=== PATIENT | female | born 1985 | race Hispanic/Latino ===

== ENCOUNTER 2019-04-10 10:04 | Emergency (ER) | payer BC, SELFPAY ==
[2019-04-10] MEDS ORDERED: Ondansetron ODT 4 MG TAB ONE (10:30)
[2019-04-10 10:56] LABS: #Lymphocytes 2.1 thou/uL (1.20-3.40); #Monocytes 0.5 thou/uL (0.11-0.59); #Neutrophils 2.6 thou/uL (1.40-6.50); %Basophils 0.3 % (0.0-1.0); %Eosinophils 0.3 % (0.0-10.0); %Lymphocytes 40.5 % (21.0-51.0); %Neutrophils 49.9 % (42.0-75.0); Hemoglobin 13.9 g/dL (12.0-16.0); Mean Corpuscular HGB CONC 35.4 g/dL (32.0-36.0); Mean Corpuscular Hemoglobin 29.9 pg (27.0-31.0); Mean Corpuscular Volume 84.5 fL (78.0-98.0); Mean Platelet Volume 8.5 fL (7.4-10.4); Platelet Count 174 thou/uL (130-400); RBC Distribution Width 11.6 % (11.5-14.5); Red Blood Cell (RBC) Count 4.64 mill/uL (4.20-5.40); White Blood Cell (WBC) Count 5.1 thou/uL (4.8-10.8)
[2019-04-10] MEDS ORDERED: Morphine 4 MG/ML VIAL ONE (11:00)
[2019-04-10 11:10] LABS: BHCG - Serum Negative (NEGATIVE); Pregs Control Background? CLEAR/WHITE (CLR/WHITE); Pregs Control Bar Appear? YES (CONTROL BAR)
[2019-04-10 11:21] LABS: ALT (SGPT) 41 U/L (8-55); AST (SGOT) 31 U/L (5-34); Albumin 4.2 g/dL (3.5-5.0); Alkaline Phosphatase 61 U/L (40-110); Anion Gap 13 mmol/L (10-20); BUN (Urea Nitrogen) 15 mg/dL (7.0-18.7); Bilirubin, Total 0.8 mg/dL (0.2-1.2); Calc. Creatinine Clearance 0 mL/min (70-130); Calcium 9.3 mg/dL (7.8-10.44); Carbon Dioxide 21 mmol/L (22-29); Chloride 107 mmol/L (98-107); Estimated GFR-MDRD 85; Globulin 3.2 g/dL (2.4-3.5); Glucose 80 mg/dL (70-105); Lipase 20 U/L (8-78); Protein, Total 7.4 g/dL (6.0-8.3); Sodium 137 mmol/L (136-145)
--- NOTE | 2019-04-10 11:42 | ULT ---
RIGHT UPPER QUADRANT ULTRASOUND: Date: 04/10/19 HISTORY: Gastroparesis. Severe right upper quadrant pain, onset this morning. COMPARISON: None. TECHNIQUE: Utilizing a multihertz transducer, sagittal and transverse imaging of the right upper quadrant is per formed. FINDINGS: Pancreas is obscured by bowel gas. Suboptimal evaluation inferior vena cava. Heterogeneous echotexture of the liver which may be due to hepatic steatosis or hepatocellular diseas e. Limited evaluation for hepatic masses and intrahepatic biliary dilatation. Right hepatic lobe anuj ures 16.6 cm. Grossly, main portal vein is patent. Suboptimal evaluation of the common bile duct. No definite sonographic evidence of cholelithiasis, gallbladder wall thickening, or pericholecystic f luid. However, home improvement installer reports a positive Pierce's sign. Suboptimal evaluation of the right kidney. Grossly, no hydronephrosis. IMPRESSION: 1. Suboptimal evaluation due to bowel gas. No definite sonographic evidence of cholelithiasis. Howev er, home improvement installer does report a positive Pierce's sign. Consider HIDA scan if clinically warranted. 2. Heterogeneous echotexture of the liver which may be due to technical limitations, hepatic steatos is, or hepatocellular disease. Further evaluation with CT if clinically warranted. POS: [facility]
--- NOTE | 2019-04-10 13:35 | CT ---
CT ABDOMEN WITH CONTRAST CT PELVIS WITH CONTRAST: DATE: 04/10/2019 HISTORY: 33-year-old female with right upper quadrant abdominal pain and possible abnormal findings on ultraso und. TECHNIQUE: IV injection of iodinated contrast media: Administered Oral contrast media:Not administered FINDINGS: Liver: No focal solid mass. Spleen: No splenomegaly.. Pancreas: No mass or surrounding fat stranding.. Adrenals: No mass.. Kidneys: No enhancement abnormalities. Mild dilation of bilateral collecting systems Ureters: No dilation. Bladder: Distended. Normal wall thickness. Abdominal aorta: No aneurysm. Small bowel: No dilation. Colon: No adjacent fat stranding. Appendix: No dilation or adjacent fat stranding.. Free air: None. Free fluid: None. Gallbladder: No mural thickening or mural enhancement. No pericholecystic fluid or edema. Lung bases: Clear. IMPRESSION: 1). Mild bilateral hydronephrosis, probably due to distended urinary bladder. 2) otherwise normal
[2019-04-10 15:45] LABS: Bilirubin Negative (Negative); Blood, Urine Negative (Negative); Clarity Clear (Clear); Glucose, Urine (Dipstick) Normal (Negative); Leukocyte Negative Leu/uL (Negative); Nitrite Negative (Negative); Protein, Urine (Dipstick) Negative (Neg-Trace); Urobilinogen Normal mg/dL (Less than 2)
[2019-04-10] MEDS ORDERED: Ketorolac Tromethamine 30 MG/ML VIAL ONE (15:59)
== END 2019-04-10 16:11 | disposition home or self-care (01) ==
LOC: ERS 10:04
DX: R10.11 Right upper quadrant pain (principal); E03.9 Hypothyroidism, unspecified; F41.9 Anxiety disorder, unspecified; Z79.899 Other long term (current) drug therapy
CPT/HCPCS: 74177; 76705; 80053; 81003; 83690; 84703; 85025; 96361; 96374; 96375; J1885; J2270; Q0162

== ENCOUNTER 2020-08-06 00:32 | Emergency (ER) | payer BC ==
[2020-08-06 00:59] LABS: #Lymphocytes 2.2 thou/uL (1.20-3.40); #Monocytes 0.5 thou/uL (0.11-0.59); #Neutrophils 3.2 thou/uL (1.40-6.50); %Basophils 0.8 % (0.0-1.0); %Eosinophils 0.3 % (0.0-10.0); %Lymphocytes 36.9 % (21.0-51.0); Hemoglobin 14.1 g/dL (12.0-16.0); Mean Corpuscular Hemoglobin 30.2 pg (27.0-31.0); Mean Corpuscular Volume 88.7 fL (78.0-98.0); Mean Platelet Volume 7.5 fL (7.4-10.4); Platelet Count 215 thou/uL (130-400); RBC Distribution Width 11.6 % (11.5-14.5); Red Blood Cell (RBC) Count 4.68 mill/uL (4.20-5.40)
[2020-08-06 01:20] LABS: ALT (SGPT) 35 U/L (8-55); AST (SGOT) 24 U/L (5-34); Albumin 3.9 g/dL (3.5-5.0); Alkaline Phosphatase 65 U/L (40-110); Anion Gap 12 mmol/L (10-20); BUN (Urea Nitrogen) 8 mg/dL (7.0-18.7); Bilirubin, Total 0.3 mg/dL (0.2-1.2); Calc. Creatinine Clearance 0 mL/min (70-130); Calcium 8.8 mg/dL (7.8-10.44); Carbon Dioxide 24 mmol/L (22-29); Chloride 108 mmol/L (98-107); Globulin 3.5 g/dL (2.4-3.5); Glucose 95 mg/dL (70-105); Lipase 59 U/L (8-78); Potassium 3.8 mmol/L (3.5-5.1); Protein, Total 7.4 g/dL (6.0-8.3); Sodium 140 mmol/L (136-145)
[2020-08-06] MEDS ORDERED: Morphine 4 MG/ML VIAL ONE (01:38)
[2020-08-06] MEDS ORDERED: Ondansetron PF 4 MG/2 ML Vial ONE (01:38)
[2020-08-06] MEDS ORDERED: Ketorolac Tromethamine 30 MG/ML VIAL ONE (02:59)
[2020-08-06 03:22] LABS: Bilirubin Negative (Negative); Blood, Urine Negative (Negative); Clarity Clear (Clear); Glucose, Urine (Dipstick) Normal (Negative); Ketone, Urine Negative (Negative); Leukocyte Negative Leu/uL (Negative); Nitrite Negative (Negative); Protein, Urine (Dipstick) Negative (Neg-Trace); Specific Gravity, Urine 1.015 (1.002-1.036); Urobilinogen Normal mg/dL (Less than 2)
[2020-08-06 03:23] LABS: Pregnancy Test - Urine (BHCG) Negative (Negative); Pregu Control Background? CLEAR/WHITE (CLR/WHITE); Pregu Control Bar Appear? YES (CONTROL BAR); Specific Gravity 1.015 (1.002-1.036)
--- NOTE | 2020-08-06 09:21 | CT ---
PRELIMINARY REPORT/[facility]/EMERGENCY AFTER HOURS PROCEDURE: EXAM: CT Abdomen and Pelvis with Intravenous Contrast CLINICAL HISTORY: 34-year-old female patient presents ER with complaint of right lower quadrant abdom inal pain, nausea, vomiting began earlier today. The patient reports a similar episode in the past wh en she was diagnosed with gallstones but did not ever have her gallbladder removed. Surgical history of section, tubal ligation. TECHNIQUE: Axial computed tomography images of the abdomen and pelvis with intravenous contrast. CONTRAST: With; ISOVUE 370,100mL COMPARISON: US - US GALLBLADDER RUQ - 08/06/2020 01:40 AM VAMP STITCHER FINDINGS: LUNG BASES: No basilar airspace consolidation or pleural effusion. LIVER: Unremarkable. GALLBLADDER AND BILE DUCTS: Unremarkable. No calcified stone. No ductal dilation. PANCREAS: Unremarkable. SPLEEN: Unremarkable. ADRENAL GLANDS: Unremarkable. KIDNEYS, URETERS, AND BLADDER: There are two 1 mm calculi lower pole left kidney, best appreciated on coronal reformats. STOMACH AND BOWEL: No obstruction. No wall thickening. No CT evidence of colitis or acute diverticuli tis. APPENDIX: Appendix is normal. PERITONEUM: No free fluid. No free air. LYMPH NODES: No lymphadenopathy. REPRODUCTIVE: The uterus and right adnexa are within normal limits. There is collapse left ovarian fo llicle measuring 1.3 cm. VASCULATURE: No aortic aneurysm. BONES: No fracture or suspicious osseous abnormality. ABDOMINAL WALL AND SOFT TISSUES: Unremarkable. IMPRESSION: No acute abnormality. Left nephrolithiasis. ELECTRONICALLY SIGNED BY: Tory Reid MD Aug 06, 2020 4:03:53 AM VAMP STITCHER FINAL REPORT ABDOMEN CT WITH CONTRAST PELVIC CT WITH CONTRAST: COMPARISON: 04/10/2019. HISTORY: Abdominal pain. Nausea. FINDINGS: ABDOMEN CT: Clear lung bases. Normal heart size. Normal caliber aorta. Portal vein is patent. Unremarkable gallbladder. Appropriate enhancement of the solid organs. No gastrohepatic retrocrural, or periportal lymphadenopathy. Symmetric enhancement of the kidneys. Bilaterally, no obstructive uropathy. Limited evaluation of the alimentary canal by the lack of oral contrast. No evidence of a bowel obst ruction. Incompetent ileocecal valve with reflux of contrast into the distal ileum. Normal-caliber appendix. Unremarkable colon. PELVIC CT: There is a dominant follicle in the left ovary, measuring 2.3 x 1.3 cm. No pelvic mass, lymphadenopa thy, free air, or free fluid. No lytic or blastic lesions in the osseous structures. IMPRESSION: 1. This report is in agreement with the preliminary report by [facility]. 2. No acute abnormality in the abdomen or pelvis. POS: [facility]
--- NOTE | 2020-08-06 09:23 | ULT ---
PRELIMINARY REPORT/[facility]/EMERGENCY AFTER HOURS PROCEDURE: EXAM: US Abdomen Limited, Right Upper Quadrant. CLINICAL HISTORY: RUQ pain x 2 days, pain worse tonight, N/V TECHNIQUE: Real-time ultrasound of the right upper quadrant with image documentation. COMPARISON: None provided. FINDINGS: LIVER: There is fatty infiltration of the liver GALLBLADDER: The gallbladder is contracted. No gallstone. No wall thickening. No pericholecystic flu id. The audit tech reports a negative sonographic Pierce sign. COMMON BILE DUCT: No dilation. PANCREAS: The pancreas is obscured by overlying bowel gas. RIGHT KIDNEY: Unremarkable. No hydronephrosis. IMPRESSION: Fatty infiltration of the liver. Contracted gallbladder without evidence of stones. ELECTRONICALLY SIGNED BY: Jagjit Sotomayor MD Aug 06, 2020 2:28:17 AM HIGH SCHOOL COUNSELOR FINAL REPORT GALLBLADDER ULTRASOUND: HISTORY: Pain. COMPARISON: 04/10/2019. FINDINGS: Pancreas is obscured by bowel gas. Heterogeneous echotexture of the liver may be due to hepatic steatosis or hepatocellular disease. Li mited evaluation for hepatic masses and intrahepatic biliary dilatation. Common bile duct diameter is 0.3 cm. Portal vein is patent. No evidence of hydronephrosis. Normal cortical echotexture of the right kidney, measuring 10.7 cm in maximum dimension. Gallbladder is contracted, limiting evaluation. Negative Pierce's sign is reported. IMPRESSION: 1. This report is in agreement with the preliminary report by [facility]. 2. Contracted gallbladder. 3. Heterogeneous echotexture of the liver which may be due to hepatic steatosis or hepatocellular di sease. POS: [facility]
[2020-08-06] MEDS ORDERED: Iopamidol 370 76% 100 ML VIAL ONE (14:14)
== END 2020-08-06 05:00 | disposition home or self-care (01) ==
LOC: ERS 00:32
DX: R10.31 Right lower quadrant pain (principal); R10.811 Right upper quadrant abdominal tenderness; R11.2 Nausea with vomiting, unspecified; E03.9 Hypothyroidism, unspecified; Z79.899 Other long term (current) drug therapy
CPT/HCPCS: 36415; 74177; 76705; 80053; 81003; 81025; 83690; 85025; 96374; 96375; J1885; J2270; J2405; Q9967

== ENCOUNTER 2023-02-01 02:41 | Emergency (ER) | payer OTHER, BC ==
[2023-02-01 03:03] LABS: #Monocytes 0.5 thou/uL (0.11-0.59); #Neutrophils 4.9 thou/uL (1.40-6.50); %Basophils 0.3 % (0.0-1.0); %Eosinophils 0.1 % (0.0-10.0); %Lymphocytes 22.3 % (21.0-51.0); %Monocytes 7.4 % (0.0-10.0); %Neutrophils 69.6 % (42.0-75.0); Hematocrit 39.1 % (36.0-47.0); Mean Corpuscular HGB CONC 33.2 g/dL (32.0-36.0); Mean Corpuscular Hemoglobin 28.4 pg (27.0-31.0); Mean Corpuscular Volume 85.6 fl (78.0-98.0); Mean Platelet Volume 9.8 fL (7.4-10.4); Platelet Count 226 10x3/uL (130-400); RBC Distribution Width 13.2 % (11.5-14.5); Red Blood Cell (RBC) Count 4.57 mill/uL (4.20-5.40)
[2023-02-01 03:11] LABS: BHCG - Serum Negative (NEGATIVE); Pregs Control Background? CLEAR/WHITE (CLR/WHITE); Pregs Control Bar Appear? YES (CONTROL BAR)
[2023-02-01 03:12] LABS: Prothrombin Time 13.3 sec (12.0-14.7)
[2023-02-01 03:13] LABS: PTT 24.9 sec (22.9-36.1)
[2023-02-01 03:31] LABS: ALT (SGPT) 22 U/L (8-55); AST (SGOT) 29 U/L (5-34); Alcohol 107.8 mg/dL (Less than 10); Alkaline Phosphatase 77 U/L (40-110); Anion Gap 15 mmol/L (10-20); BUN (Urea Nitrogen) 8 mg/dL (7.0-18.7); Bilirubin, Total 0.4 mg/dL (0.2-1.2); Calc. Creatinine Clearance 0 mL/min (70-130); Calcium 8.9 mg/dL (7.8-10.44); Carbon Dioxide 23 mmol/L (22-29); Chloride 105 mmol/L (98-107); Estimated GFR 103; Globulin 3.5 g/dL (2.4-3.5); Glucose 100 mg/dL (70-105); Lipase 36 U/L (8-78); Potassium 3.9 mmol/L (3.5-5.1); Protein, Total 7.5 g/dL (6.0-8.3); Sodium 139 mmol/L (136-145)
[2023-02-01] MEDS ORDERED: Boostrix 0.5 ML (Tdap) VIAL (>/=7 yrs of age) ONE (03:52)
[2023-02-01] MEDS ORDERED: Ondansetron PF 4 MG/2 ML Vial ONE ×2 (03:52→03:53)
[2023-02-01 05:36] LABS: Bacteria/HPF None Seen HPF (None Seen); Bilirubin Negative (Negative); Blood, Urine Negative (Negative); CAUTI Indications for Culture Alt mental st,lethar; Clarity Clear (Clear); Glucose, Urine (Dipstick) Normal (Negative); Ketone, Urine Negative (Negative); Leukocyte Negative Leu/uL (Negative); Nitrite Negative (Negative); Protein, Urine (Dipstick) 20 mg/dL (Neg-Trace); RBC/HPF None Seen HPF (0-3); Urobilinogen Normal mg/dL (Less than 2); WBC/HPF 0-3 HPF (0-3); pH, Urine 6.5 (5.0-9.0)
[2023-02-01 05:37] LABS: Specific Gravity, Urine Greater than 1.060 (1.002-1.036)
[2023-02-01 05:38] LABS: Urine Culture Reflex No No
[2023-02-01] MEDS ORDERED: HYDROcodone/Acetaminophen 5/325 mg Tablet ONE (06:17)
[2023-02-01] MEDS ORDERED: Ketorolac Tromethamine 30 MG/ML VIAL ONE (06:17)
[2023-02-01] MEDS ORDERED: Iopamidol 370 76% 100 ML VIAL ONE (10:55)
== END 2023-02-01 06:38 | disposition home or self-care (01) ==
LOC: ERS 02:41
DX: S00.83XA Contusion of other part of head, initial encounter (principal); S02.2XXA Fracture of nasal bones, initial encounter for closed fracture; F10.129 Alcohol abuse with intoxication, unspecified; E03.9 Hypothyroidism, unspecified; Y90.5 Blood alcohol level of 100-119 mg/100 ml; V89.2XXA Person injured in unspecified motor-vehicle accident, traffic, initial encounter; Z23 Encounter for immunization
CPT/HCPCS: 36415; 51701; 70450; 70486; 71045; 71260; 72125; 72170; 74177; 80053; 80307; 81001; 83605; 83690; 84703; 85025; 85610; 85730; 90471; 90715; 94760; 96361; 96374; 96375; J1885; J2405; Q9967

== ENCOUNTER 2023-05-25 20:52 | Emergency (ER) | payer BC ==
[~2023-05-25 20:52] MED LIST: Iopamidol-370 76% 500 ML MDV (1 ML CHARGE) ONE
[2023-05-25] MEDS ORDERED: Metoclopramide HCl 10 MG/2 ML VIAL ONE (21:47)
[2023-05-25] MEDS ORDERED: Sodium Chloride 0.9% 100 ML ONE (21:47)
[2023-05-25] MEDS ORDERED: diphenhydrAMINE 50 MG/ML VIAL ONE (21:48)
[2023-05-25 22:08] LABS: #Monocytes 0.5 thou/uL (0.11-0.59); #Neutrophils 2.4 thou/uL (1.40-6.50); %Basophils 0.2 % (0.0-1.0); %Eosinophils 0.4 % (0.0-10.0); %Lymphocytes 45.8 % (21.0-51.0); %Monocytes 9.6 % (0.0-10.0); %Neutrophils 43.8 % (42.0-75.0); Hematocrit 40.1 % (36.0-47.0); Hemoglobin 12.5 g/dL (12.0-16.0); Mean Corpuscular HGB CONC 31.2 g/dL (32.0-36.0); Mean Corpuscular Hemoglobin 27.2 pg (27.0-31.0); Mean Corpuscular Volume 87.2 fl (78.0-98.0); Mean Platelet Volume 10.1 fL (7.4-10.4); Platelet Count 187 10x3/uL (130-400); RBC Distribution Width 14.4 % (11.5-14.5); White Blood Cell (WBC) Count 5.5 10x3/uL (4.8-10.8)
[2023-05-25 22:16] LABS: BHCG - Serum Negative (NEGATIVE); Pregs Control Background? CLEAR/WHITE (CLR/WHITE); Pregs Control Bar Appear? YES (CONTROL BAR)
[2023-05-25 22:21] LABS: PTT 25.4 sec (22.9-36.1); Prothrombin Time 13.3 sec (12.0-14.7)
[2023-05-25 22:32] LABS: ALT (SGPT) 7 U/L (8-55); AST (SGOT) 14 U/L (5-34); Albumin 3.9 g/dL (3.5-5.0); Alkaline Phosphatase 68 U/L (40-110); Anion Gap 14 mmol/L (10-20); BUN (Urea Nitrogen) 8 mg/dL (7.0-18.7); Bilirubin, Total 0.3 mg/dL (0.2-1.2); Calc. Creatinine Clearance 0 mL/min (70-130); Calcium 8.6 mg/dL (7.8-10.44); Carbon Dioxide 22 mmol/L (22-29); Chloride 110 mmol/L (98-107); Estimated GFR 114; Globulin 3.1 g/dL (2.4-3.5); Glucose 65 mg/dL (70-105); Lipase 49 U/L (8-78); Potassium 3.9 mmol/L (3.5-5.1); Sodium 142 mmol/L (136-145)
[2023-05-25 22:41] LABS: Troponin I Less than 0.010 ng/mL (< 0.028)
[2023-05-25] MEDS ORDERED: Morphine 4 MG/ML VIAL ONE (23:29)
== END 2023-05-26 01:50 | disposition home or self-care (01) ==
LOC: ERS 20:52
DX: R10.84 Generalized abdominal pain (principal); R11.2 Nausea with vomiting, unspecified
CPT/HCPCS: 36415; 74177; 80053; 83690; 83735; 84484; 84703; 85025; 85610; 85730; 86850; 86900; 86901; 93005; 96365; 96366; 96375; J1200; J2270; J2765; J3490; Q9967